=== PATIENT | female | born 1965 | race Caucasian/White ===

== ENCOUNTER 2020-10-29 11:04 | Outpatient (REF) | payer MEDICAID, SELFPAY | END 2020-10-29 11:05 | disposition home or self-care (01) | LOC: HO.BBR 11:04 | PROVIDERS: PCP Family Medicine; Visit Provider Internal Medicine Hematology & Oncology | DX: Z13.89 Encounter for screening for other disorder (principal) ==

== ENCOUNTER 2020-11-27 11:00 | Outpatient (REF) | payer MEDICAID, SELFPAY ==
[2020-11-27 12:58] LABS: Iron 146 mcg/dL (30-160); Percent Iron Saturation 60 % (15-50); Total Iron Binding Capacity 244 mcg/dL (228-428); Unsaturated Iron Binding 98 ug/dL
[2020-11-27 13:20] LABS: Ferritin 68 ng/mL (10-250)
== END 2020-11-27 11:01 | disposition home or self-care (01) ==
LOC: HO.BBR 11:00
PROVIDERS: Visit Provider Internal Medicine Hematology & Oncology
DX: E83.110 Hereditary hemochromatosis (principal)
CPT/HCPCS: 36415; 82728; 83540

== ENCOUNTER 2020-12-27 11:10 | Outpatient (REF) | payer MEDICAID, SELFPAY ==
[2020-12-27 12:48] LABS: Iron 148 mcg/dL (30-160); Percent Iron Saturation 61 % (15-50); Total Iron Binding Capacity 243 mcg/dL (228-428); Unsaturated Iron Binding 95 ug/dL
[2020-12-27 13:08] LABS: Ferritin 36 ng/mL (10-250)
== END 2020-12-27 11:11 | disposition home or self-care (01) ==
LOC: HO.BBR 11:10
PROVIDERS: Visit Provider Internal Medicine Hematology & Oncology
DX: E83.110 Hereditary hemochromatosis (principal)
CPT/HCPCS: 36415; 82728; 83540

== ENCOUNTER 2021-01-25 12:05 | Outpatient (REF) | payer MEDICAID, SELFPAY | END 2021-01-25 12:06 | disposition home or self-care (01) | LOC: HO.BBR 12:05 | PROVIDERS: PCP Family Medicine; Visit Provider Internal Medicine Hematology & Oncology | DX: Z13.89 Encounter for screening for other disorder (principal) ==

== ENCOUNTER 2021-03-22 11:06 | Outpatient (REF) | payer MEDICAID, SELFPAY ==
[2021-03-22 13:01] LABS: Ferritin 22 ng/mL (10-250)
== END 2021-03-22 11:07 | disposition home or self-care (01) ==
LOC: HO.BBR 11:06
PROVIDERS: Visit Provider Internal Medicine Hematology & Oncology
DX: E83.110 Hereditary hemochromatosis (principal)
CPT/HCPCS: 36415; 82728

== ENCOUNTER 2021-10-16 10:04 | Outpatient (REF) | payer MEDICAID, SELFPAY | END 2021-10-16 10:05 | disposition home or self-care (01) | LOC: HO.BBR 10:04 | PROVIDERS: Visit Provider Internal Medicine Hematology & Oncology | DX: Z13.89 Encounter for screening for other disorder (principal) ==

== ENCOUNTER 2022-05-16 11:08 | Outpatient (REF) | payer MEDICAID, SELFPAY | END 2022-05-16 11:09 | disposition home or self-care (01) | LOC: HO.BBR 11:08 | PROVIDERS: Visit Provider Internal Medicine Hematology & Oncology | DX: Z13.89 Encounter for screening for other disorder (principal) ==

== ENCOUNTER 2022-06-16 10:16 | Outpatient (REF) | payer MEDICAID, SELFPAY | END 2022-06-16 10:17 | disposition home or self-care (01) | LOC: HO.BBR 10:16 | PROVIDERS: Visit Provider Internal Medicine Hematology & Oncology | DX: Z13.89 Encounter for screening for other disorder (principal) ==

== ENCOUNTER 2022-07-16 10:02 | Outpatient (REF) | payer MEDICAID, SELFPAY | END 2022-07-16 10:03 | disposition home or self-care (01) | LOC: HO.BBR 10:02 | PROVIDERS: PCP Family Medicine; Visit Provider Internal Medicine Hematology & Oncology | DX: Z13.89 Encounter for screening for other disorder (principal) ==

== ENCOUNTER 2023-12-30 10:05 | Outpatient (REF) | payer OTHER, SELFPAY | END 2023-12-30 10:06 | disposition home or self-care (01) | LOC: HO.BBR 10:05 | PROVIDERS: PCP Family Medicine; Visit Provider Internal Medicine Hematology & Oncology | DX: Z13.89 Encounter for screening for other disorder (principal) ==

== ENCOUNTER 2024-04-05 11:09 | Outpatient (REF) | payer OTHER, SELFPAY | END 2024-04-05 11:10 | disposition home or self-care (01) | LOC: HO.BBR 11:09 | PROVIDERS: PCP Family Medicine; Visit Provider Internal Medicine Hematology | DX: Z13.89 Encounter for screening for other disorder (principal) ==

== ENCOUNTER 2024-07-05 11:10 | Outpatient (REF) | payer OTHER, SELFPAY | END 2024-07-05 11:11 | disposition home or self-care (01) | LOC: HO.BBR 11:10 | PROVIDERS: PCP Family Medicine; Visit Provider Internal Medicine Hematology | DX: Z13.89 Encounter for screening for other disorder (principal) ==

== ENCOUNTER 2024-10-03 10:54 | Outpatient (REF) | payer OTHER, SELFPAY | END 2024-10-03 10:55 | disposition home or self-care (01) | LOC: HO.BBR 10:54 | PROVIDERS: PCP Family Medicine; Visit Provider Internal Medicine Hematology | DX: Z13.89 Encounter for screening for other disorder (principal) ==

== ENCOUNTER 2025-01-02 11:03 | Outpatient (REF) | payer OTHER, SELFPAY ==
--- OUTSIDE RECORDS SUMMARY | 2025-01-02 12:37 | XMS_ITS | Patient Health Record ---
Author Organization [facility] Address [address] [place] [address] Support Name Relationship Address Phone CODY STUART Guarantor Unknown [phone] Reason For Referral No Information Medications Medication SIG (Take, Route, Fr equency, Duration) Notes Start Date End Date Status Doxycycline Hyclate 1 ORAL twice daily for -3 Danish-MJ 11/17 Active Problems Problem Type SNOMED Code ICD Code Onset Dates Problem Status W/U Status Risk Notes Problem Gynecological examination normal (464926250794995) Routine gynecological examination (V72.31) Active confirmed Major Problem Special screenin g for malignant neoplasms, colon (V76.51) Active confirmed Major Plan Of Treatment No Information
== END 2025-01-02 11:04 | disposition home or self-care (01) ==
LOC: HO.BBR 11:03
PROVIDERS: PCP Family Medicine; Visit Provider Internal Medicine Hematology
DX: Z13.89 Encounter for screening for other disorder (principal)

== ENCOUNTER 2025-05-04 10:26 | Outpatient (REF) | payer OTHER, SELFPAY ==
--- OUTSIDE RECORDS SUMMARY | 2025-05-04 12:54 | XMS_ITS | Patient Health Record ---
Author Organization [facility] Address [address] [place] [address] Support Name Relationship Address Phone CODY STUART Guarantor Unknown [phone] Reason For Referral No Information Medications Medication SIG (Take, Route, Fr equency, Duration) Notes Start Date End Date Status Doxycycline Hyclate 1 ORAL twice daily; Duration: -3 Danish-MJ 11/28/2013 Active Problems Problem Type SNOMED Code ICD Code Onset Dates Problem Status W/U Status Risk Notes Problem Gynecological examination normal (620980587728449) Routine gynecological examination (V72.31) Active confirmed Major Problem Screening for malignant neoplasm of colon (441148363) Special screening for malignant neoplasms, colon (V76.51) Active confirmed Major Plan Of Treatment No Information
--- OUTSIDE RECORDS SUMMARY | 2025-05-04 12:54 | XMS_ITS | Clinical Summary ---
Author Organization [facility] Address [address] [place] [address] Phone Care Team Providers Care House Nurse Name Role Phone Yoly Perry MD Primary Care Provider [phone] Encounters Date Type Department Care Team Description 02/21/2025 9:54 AM EDT - 02/21/2025 11:59 PM EDT Hospital Encounter [facility] CT Scan [address] [place] [address] Encounter for screening for lung cancer; Former smoker Discharge Disposition: Home or Self Care from Last 3 Months Social History Tobacco Use Types Packs/Day Years Used Date Smoking Tobacco: Former Cigarettes Q uit: 07/20/2020 Comments Unknown Sex and Gender Information Value Date Recorded Sex Assigned at Not on file Legal Sex Female 11:05 AM EDT Gender Identity Not on file Sexual Orientation Not on file Obstetrics History Plan of Treatment Health Maintenance Due Date Last Done Comments Breast Cancer Screening 1963 Colorectal Cancer Screening: Colonoscopy 1963 Cervical Cancer Screening: P ap Smear 1984 Pneumococcal Vaccine: 50+ Years (1 of 1 - PCV) 2013 Zoster Vaccines (1 of 2) 2013 DTaP,Tdap,and Td Vaccines (3 - Td or Tdap) 06/07/2022 06/07/2012, 07/20/2002 HIV Screening 02/12/2024 Hepatitis C Screening 02/12/2024 Social Influencers of Health Screening 02/12/2024 Depression Screening 07/20/2024 COVID-19 Vaccine (4 - 2024-2 6 season) 2025 06/30/2021, 11/12/2020, 10/22/2020 Influenza Vaccine (#1) 2025 RSV Immunization Adult Patients (1 - 1-dose 75+ series) 2038 HIB Vaccines Aged Out No longer eligi ble based on patient's age to complete this topic HPV Vaccines Aged Out No longer eligi ble based on patient's age to complete this topic Hepatitis A Vaccines Aged Out No long er eligible based on patient's age to complete this topic Hepatitis B Vaccines Aged Out No long er eligible based on patient's age to complete this topic IPV Vaccines Aged Out No longer eligi ble based on patient's age to complete this topic MMR Vaccines Aged Out No longer eligi ble based on patient's age to complete this topic Meningococcal ACWY Vaccine Aged Out N o longer eligible based on patient's age to complete this topic Meningococcal B Vaccine Aged Out No l onger eligible based on patient's age to complete this topic RSV Immunization Patients Under 20 months Aged Out No longer eligible b ased on patient's age to complete this topic Varicella Vaccines Aged Out No longer eligible based on patient's age to complete this topic Procedures Procedure Name Priority Date/Time Associated Diagnosis Comments CT LUNG SCREENING Routine 02/21/2025 10: 00 AM EDT Encounter for screening for lung cancer Former smoker from Last 3 Months Results * CT Lung Screening (02/21/2025 10:00 AM EDT) Anatomical Region Laterality Modality Chest Computed Tomogra phy 02/24/2025 5:54 PM EDT Impressions 02/24/2025 5:58 PM EDT No suspicious pulmonary nodules. ASSESSMENT: LungRADS Category2: Benign Appearance/Behavior - Continue annual screening with LDCT in 12 months Complete Lung RADS description including probabilities of malignancy and prevalence can be found at: [employer] Committee on Lung-RADS?. Lung- RADS Assessment Categories 2021. Available at [email or web address]. -------- FINAL REPORT -------- Dictated By: Ant Lopez Dictated Date: 02/24/2025 17:54 ET Assigned Physician: Ant Lopez Reviewed and Electronically Signed By: Ant Lopez Signed Date: 02/24/2025 17:58 ET Workstation ID: [id number] Transcribed By: Self Edit Transcribed Date: 02/24/2025 17:54 ET Narrative 02/24/2025 5:58 PM EDT History: 59 year-old 22.5 pack-year former smoker, asymptomatic, for lung cancer screening. 40 year since stopped Comparison: None Technique: Helical volumetric imaging of the thorax was performed, using low- dose technique, without IV contrast. DLP: 99 mGy/cm CT dose reduction technique utilized with one or more of the following: Automated exposure control and/or adjustment of the mA and/or kV according to patient size and/or use of iterative reconstruction technique. Findings: Lungs: Reveal millimeter nodule right upper lobe. 5 mm right lower lobe pleural-based nodule. Atelectasis medial right lower lobe. Calcified granuloma along the pleura on the left lower lobe. Pleura: There are no pleural effusions. No calcified or noncalcified pleural plaques. Mediastinum: Coronary artery calcifications. Upper Abdomen: This study was performed without contrast and with lower than standard dose. These factors reduce the sensitivity for detection of small lesions in the upper abdomen. Osseous Structures: No suspicious osseous abnormalities. Procedure Note Ant Lopez MD - 02/24/2025 History: 59 year-old 22.5 pack-year former smoker, asymptomatic, for lungcancer screening. 40 year since stopped Comparison: None Technique: Helical volumetric imaging of the thorax was performed, usinglow-dose technique, without IV contrast. DLP: 99 mGy/cm CT dose reduction technique utilized with one or more of the following:Automated exposure control and/or adjustment of the mA and/or kV accordingto patient size and/or use of iterative reconstruction technique. Findings: Lungs: Reveal millimeter nodule right upper lobe. 5 mm right lower lobepleural- based nodule. Atelectasis medial right lower lobe. Calcifiedgranuloma along the pleura on the left lower lobe. Pleura: There are no pleural effusions. No calcified or noncalcifiedpleural plaques. Mediastinum: Coronary artery calcifications. Upper Abdomen: This study was performed without contrast and with lowerthan standard dose. These factors reduce the sensitivity for detection ofsmall lesions in the upper abdomen. Osseous Structures: No suspicious osseous abnormalities. IMPRESSION: No suspicious pulmonary nodules. ASSESSMENT: LungRADS Category2: Benign Appearance/Behavior - Continue annual screeningwith LDCT in 12 months Complete Lung RADS description including probabilities of malignancy andprevalence can be found at: [employer] Committee onLung-RADS?. Lung-RADS Assessment Categories 2021. Available [email or web address]. -------- FINAL REPORT -------- Dictated By: Ant Lopez Dictated Date: 02/24/2025 17:54 ET Assigned Physician: Ant Lopez Reviewed and Electronically Signed By: Ant Lopez Signed Date: 02/24/2025 17:58 ET Workstation ID: [id number] Transcribed By: Self Edit Transcribed Date: 02/24/2025 17:54 ET Michael Villasenor MD IMG CT PROCEDURES Final Result from Last 3 Months Insurance [facility] Care Teams House Nurse Relationship Specialty Start Date End Date Yoly Perry MD [address] [place] [address] PCP - General 12/08/23
== END 2025-05-04 10:27 | disposition home or self-care (01) ==
LOC: HO.MAMMO 10:26
PROVIDERS: PCP Internal Medicine Hematology; Visit Provider Family Medicine
DX: Z12.31 Encounter for screening mammogram for malignant neoplasm of breast (principal)
CPT/HCPCS: 77063; 77067

== ENCOUNTER → 2025-05-04 10:30 | Outpatient (BNV) | payer OTHER, SELFPAY | PROVIDERS: PCP Internal Medicine Hematology; Visit Provider Radiology Body Imaging | DX: Z12.31 Encounter for screening mammogram for malignant neoplasm of breast (principal) | CPT/HCPCS: 77063; 77067 ==

== ENCOUNTER 2025-05-05 09:52 | Outpatient (REF) | payer OTHER, SELFPAY ==
--- OUTSIDE RECORDS SUMMARY | 2025-05-05 11:31 | XMS_ITS | Encounter Summary ---
Author Organization [facility] Address [address] [place] [address] Phone Care Team Providers Care Lpn Medical Assistant Name Role Phone Yoly Perry MD Primary Care Provider [phone] Encounter Details Date Type Department Care Team (Late st Contact Info) Description 08/09/2021 Procedure Pass [facility], Ct Scan - [address] [address] Social History Tobacco Use Types Packs/Day Years Used Date Smoking Tobacco: Former Cigarettes 0.3 8 0 07/20/2013 - 07/20/2021 Smokeless Tobacco: Never Alcohol Use Standard Drinks/Week Comments Yes 0 (1 standard drink = 0.6 oz pur e alcohol) Comments Unknown Sex and Gender Information Value Date Recorded Sex Assigned at Female 08/09/2021 10:28 AM EST Legal Sex Female 9:44 PM EDT Gender Identity Female 08/09/2021 10:28 AM EST Sexual Orientation Lesbian or Black 11/15/2024 4: 22 PM EDT 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 Wish to be (Past 1 Month) No 022 4:06 PM EST Rylee Lopez RN 2. Non-Specific Active Suici jagruti Thoughts (Past 1 Month) No 08/09/2021 4:06 PM EST Rylee Lopez RN 6. Suicidal Behavior (Lifetime) No 4:06 PM EST Rylee Lopez RN documented as of this encounter Plan of Treatment Upcoming Encounters Date Type Department Care Team (Late st Contact Info) Description 07/28/2025 11:45 AM EST Office Visit [facility] Plastic Surgery [address] [place] [address] Poncho Bautista MD [address] [place] [address], [address] [address] [email or web address] documented as of this encounter Visit Diagnoses Not on filedocumented in this encounter Additional Health Concerns Infection Onset Date Last Indicated Resolved Time CoV-Exposed 08/09/2021 08/12/2021 08/20/2021 1:23 AM EST documented as of this encounter Care Teams Lpn Medical Assistant Relationship Specialty Start Date End Date Yoly Perry MD [address] [place] [address] [email or web address] PCP - General Family Medicine 09/21/20 documented as of this encounter Additional Source Comments The information contained in this document represents components of the legal health record. It is not the complete legal health record.[facility]
--- OUTSIDE RECORDS SUMMARY | 2025-05-05 11:31 | XMS_ITS | Clinical Summary ---
Author Organization [facility] Address [address] [place] [address] Phone Care Team Providers Care Telephone Operators Supervisor Name Role Phone Yoly Perry MD Primary Care Provider [phone] Allergies Active Allergy Reactions Criticality Noted Date Comments Codeine 12/09/2021 possible reaction%2Fallergy Monosodium Glutamate 08/10/2021 No products including broth with MSG Sulfa (Sulfonamide Antibiotics) 06/26/2017 Medications doxycycline hyclate (VIBRAMYCIN) 100 MG capsule 11/14/2024 Active Active Problems Problem Noted Date Diagnosed Date Small bowel obstruction 08/09/2021 Assessment & Plan (08/10/2021 3:11 PM EST): Recent history of nausea, vomiting, poor oral intake. CT abdomen pelvis showed intestinal malrotation with small bowel obstruction due to multiple areas of narrowing, likely due to internal hernia/peritoneal bands. General surgery consulted whom stated no surgical intervention Conservative management. NG tube placed in the emergency department to low intermittent suction with improvement in abdominal distention. -We will perform an NG tube clamping trial and we will remove the NG tube if the residual is less than 100 mL. - If patient starts on a clear liquid diet she will continue that throughout the day - if she is doing well tomorrow morning we will advance her diet and likely discharge her home. -IV fluids for hydration. -Nutrition consult in case parental nutrition is needed Tobacco use Assessment & Plan (08/09/2021 2:29 PM EST): Abstinent from cigarettes since New Year's day. Commended for cessation. Nicotine support not needed. Hemochromatosis Assessment & Plan (08/10/2021 3:03 PM EST): Not likely to be contributing in any way to acute events. Family History Medical History Relation Comments No Known Problems Brother CV disease Father Cancer Father Diabetes mellitus Father Alzheimer's disease Mother Breast cancer Mother Breast Cancer Mother Relation Status Comments Brother Alive Father Mother Alive Social History Tobacco Use Types Packs/Day Years Used Date Smoking Tobacco: Former Cigarettes 0.3 8 0 01/17/2020 - 07/20/2021 Smokeless Tobacco: Never Tobacco Cessation:Counseling Given: Not Answered Comments:It s been on and off Alcohol Use Standard Drinks/Week Comments Yes 5 (1 standard drink = 0.6 oz pur e alcohol) Education Answer Date Recorded Are you interested in more education? Not on brodie e 11/14/2022 Are you concerned about learning? Not on file 11/14/2022 No 11/14/2022 No 11/14/2022 Digital Access Answer Date Recorded No 12/13/2022 No 12/13/2022 Reliable internet access at home? Not on file 12/13/2022 Device with a working camera? 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 on file Not on file Not on brodie e Last Filed Vital Signs Vital Sign Reading Time Taken Comments Blood Pressure 104/67 11/15/2024 4:26 PM EDT Pulse 102 11/15/2024 4:26 PM EDT Temperature 36.1 C (97 F) 11/15/2024 4:26 PM EDT Respiratory Rate 14 11/15/2024 4:26 PM EDT Oxygen Saturation 98% 11/15/2024 4:26 PM EDT Inhaled Oxygen Concentration - - Weight 60.8 kg (134 lb) 11/15/2024 4:26 PM EDT Height 160 cm (5' 3 ) 11/15/2024 4:26 PM EDT Body Mass Index 23.74 11/15/2024 4:26 PM EDT Plan of Treatment Upcoming Encounters Date Type Department Care Team (Late st Contact Info) Description 07/28/2025 11:45 AM EST Office Visit [facility] [address] [place] [address] Poncho Bautista MD [address] [place] [phone] [email or web address] Health Maintenance Due Date Last Done Comments LIPID PANEL 1963 DEPRESSION SCREENING 1975 HEPATITIS C SCREENING 1981 HIV ONE-TIME SCREENING (18-6 5 YEARS) 1981 PAP SMEAR 1984 MAMMOGRAM 2003 COLOGUARD 2008 COLONOSCOPY 2008 COLORECTAL CANCER SCREENING 2008 FIT TEST 2008 FOBT 2008 SIGMOIDOSCOPY 2008 VIRTUAL COLONOSCOPY 2008 PNEUMOCOCCAL VACCINES (50+ years) (1 of 1 - PCV) 2013 ZOSTER VACCINES (1 of 2) 2013 Adult Td,Tdap Booster 06/07/2022 06/07/2012 , 07/20/2002 INFLUENZA VACCINE (#1) 2025 COVID-19 VACCINE (4 - 2024-2 6 season) 2025 06/30/2021, 11/12/2020, 10/22/2020 SMOKING Hx and SMOKELESS TOBACCO SCREENING 11/15/2025 11/15/2024 RSV VACCINE (1 - 1-dose 75+ series) 2038 HEPATITIS A VACCINES Aged Out No long er eligible based on patient's age to complete this topic HIB VACCINES Aged Out No longer eligi ble based on patient's age to complete this topic MENINGOCOCCAL VACCINES (ACWY) Aged Out No longer eligible based on patient's age to complete this topic MENINGOCOCCAL VACCINES (B) Aged Out N o longer eligible based on patient's age to complete this topic Medical Devices Not on file Insurance [facility] DIRECT [facility] CONNE[employer] DIRECT [facility] [place] [address] [employer] [facility] [place] [address] [facility] Address: [facility] [address] [place] [address] [facility] [address] [place], [place] [address]ORCARE DIRECT [facility] DIRECT [facility] Advance Directives For more information, please contact: [phone] (9AM - 5PM [facility], Thursday-Thursday) * Full Code (Latest Code Status on File) Date Activated Date Inactivated Comments 08/09/2021 2:22 PM Question Answer Comments Code Status Confirmed With: Patient Care Teams Telephone Operators Supervisor Relationship Specialty Start Date End Date Yoly Perry MD [address] [place] [phone] [email or web address] [facility] PCP - General Family Medicine 09/21/20 Additional Source Comments The information contained in this document represents components of the legal health record. It is not the complete legal health record.[facility]
--- OUTSIDE RECORDS SUMMARY | 2025-05-05 11:31 | XMS_ITS | Encounter Summary ---
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, 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 Not on file Not on brodie e documented as of this encounter Plan of Treatment Upcoming Encounters Date Type Department Care Team (Late Contact Info) Description 07/28/2025 11:45 AM EST Office Visit [facility] Plastic Surgery [address] [place] [address] Poncho Bautista MD [address] [place] [phone] [email or web address] documented as of this encounter Visit Diagnoses Not on filedocumented in this encounter Care Teams Anesthesiologist Relationship Specialty Start Date End Date Yoly Perry MD [address] [place] [address] [email or web address] PCP - General Family Medicine 09/21/20 documented as of this encounter Additional Source Comments The information contained in this document represents components of the legal health record. It is not the complete legal health record.[facility]
--- OUTSIDE RECORDS SUMMARY | 2025-05-05 11:31 | XMS_ITS | Encounter Summary ---
Author Organization [facility] Address [address] [place] [address] Phone Care Team Providers Care Molding And Trim Installer Name Role Phone Yoly Perry MD Primary Care Provider [phone] Reason for Referral * MRI/CAT Scan - Closed Specialty Diagnoses / Procedures Referred By Eric farrell Referred To Contact Radiology Diagnoses Small bowel obstruction Hemochromatosis, unspecified hemochromatosis type Procedures CT Abdomen/Pelvis Enterography Sabino Weaver MD Phone: tel: fax: [email or web address] Referral ID Status Reason Start Date Expiration Date Visits Re quested Visits Authorized [id number] Closed 04/30/2022 04/30/2023 1 1 Encounter Details Date Type Department Care Team (Latest Contact Info) Description 04/30/2022 Transcribe Orders Virtual Department [address] [place] [address] Sabino Weaver MD [address] [place] [id number] [email or web address] Small bowel obstruction (Primary Dx); Hemochromatosis, unspecified hemochromatosis type Social History Tobacco Use Types Packs/Day Years [...] 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 Start 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, 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 Not on file Not on file Not on brodie e documented as of this encounter Plan of Treatment Upcoming Encounters Date Type Department Care Team (Late st Contact Info) Description 07/28/2025 11:45 AM EST Office Visit [facility] Plastic Surgery [address] [place] [phone] Poncho Bautista MD [address] [place] [phone] [email or web address] documented as of this encounter Results * CT ABDOMEN/PELVIS (ENTEROGRAPHY) WITH CONTRAST (05/08/2022 2:45 PM EDT) Anatomical Region Laterality Modality Abdomen, Pelvis Computed Tomogra phy 05/11/2022 1:08 PM EDT Impressions 05/11/2022 1:39 PM EDT 1.Resolution of previously seen small bowel obstruction. 2.Previously seen suggestion of bowel malrotation is no longer seen on today's exam. Narrative 05/11/2022 1:[address] ABDOMEN/PELVIS (ENTEROGRAPHY) WITH CONTRAST TECHNIQUE: Multidetector-row CT of the abdomen and pelvis was performed after administration of intravenous contrast using tailored dose modulation techniques. Images were reconstructed in the axial, coronal, and sagittal planes. COMPARISON: Abdomen/pelvis CT on August 09, 2021. Upper GI series on January 09, 2022. FINDINGS: Lower Chest: No consolidation or pleural effusions. Liver: Stable scattered subcentimeter hypodensities. Biliary: Normal. No biliary ductal dilatation. Spleen: Normal. No splenomegaly or focal lesions. Pancreas: Normal. No masses or ductal dilatation. Adrenal Glands: Normal. No nodules. Kidneys/Ureters: Normal. No solid masses, stones, or hydronephrosis. Bowel: Stomach is physiologically distended with ingested content. No bowel dilatation to suggest obstruction. In particular, previously seen dilatation of the small bowel loops has resolved. On today's examination, there are no bowel loops positioned lateral to the liver. Duodenum appears in appropriate position. Peritoneum/Retroperitoneum: No masses, pneumoperitoneum, or fluid. Lymph Nodes: Normal. No lymphadenopathy. Pelvic Organs/Bladder: Partially distended urinary bladder is grossly unremarkable. Similar uterine leiomyomas. Vessels: No abdominal aortic aneurysm. Atherosclerotic disease with calcifications. On today's exam, the superior mesenteric vein is not dilated and it is located approximately to the right side of the superior mesenteric artery. Bones/Soft Tissues: No destructive osseous lesions. Procedure Note Nisha Law MD - 05/11/2022 CT ABDOMEN/PELVIS (ENTEROGRAPHY) WITH CONTRAST TECHNIQUE: Multidetector-row CT of the abdomen and pelvis was performedafter administration of intravenous contrast using tailored dosemodulation techniques. Images were reconstructed in the axial, coronal,and sagittal planes. COMPARISON: Abdomen/pelvis CT on August 09, 2021. Upper GI series on 2021. FINDINGS: Lower Chest: No consolidation or pleural effusions. Liver: Stable scattered subcentimeter hypodensities. Biliary: Normal. No biliary ductal dilatation. Spleen: Normal. No splenomegaly or focal lesions. Pancreas: Normal. No masses or ductal dilatation. Adrenal Glands: Normal. No nodules. Kidneys/Ureters: Normal. No solid masses, stones, or hydronephrosis. Bowel: Stomach is physiologically distended with ingested content. Nobowel dilatation to suggest obstruction. In particular, previously seendilatation of the small bowel loops has resolved. On today's examination,there are no bowel loops positioned lateral to the liver. Duodenum appearsin appropriate position. Peritoneum/Retroperitoneum: No masses, pneumoperitoneum, or fluid. Lymph Nodes: Normal. No lymphadenopathy. Pelvic Organs/Bladder: Partially distended urinary bladder is grosslyunremarkable. Similar uterine leiomyomas. Vessels: No abdominal aortic aneurysm. Atherosclerotic disease withcalcifications. On today's exam, the superior mesenteric vein is notdilated and it is located approximately to the right side of the superiormesenteric artery. Bones/Soft Tissues: No destructive osseous lesions. IMPRESSION: 1.Resolution of previously seen small bowel obstruction. 2.Previously seen suggestion of bowel malrotation is no longer seen ontoday's exam. Sabino Weaver MD IMG CT ABD/PELVIS Final Resul t documented in this encounter Visit Diagnoses Diagnosis Small bowel obstruction- Primary Unspecified intestinal obstruction Hemochromatosis, unspecified hemochromatosis type Small bowel obstruction Unspecified intestinal obstruction Hemochromatosis, unspecified hemochromatosis type documented in this encounter Care Teams Molding And Trim Installer Relationship Specialty Start Date End Date Yoly Perry MD [address] [place] [phone] [email or web address] PCP - General Family Medicine 09/21/20 documented as of this encounter Additional Source Comments The information contained in this document represents components of the legal health record. It is not the complete legal health record.[facility]
--- OUTSIDE RECORDS SUMMARY | 2025-05-05 11:31 | XMS_ITS | Clinical Summary ---
Author Organization [facility] Address [address] [place] [address] Phone Care Team Providers Care Policy Advisor Name Role Phone Yoly Perry MD Primary Care Provider [phone] Encounters Date Type Department Care Team Description 02/21/2025 9:54 AM EDT - 02/21/2025 11:59 PM EDT Hospital Encounter [facility] CT Scan [address] [place] [address] Encounter for screening for lung [...] malignancy and prevalence can be found at: [employer] Committee on Lung-RADS?. Lung- RADS Assessment Categories 2021. Available at [email or web address]. -------- FINAL REPORT -------- Dictated By: Ant Lopez Dictated Date: 02/24/2025 17:54 ET Assigned Physician: Ant Lopez Reviewed and Electronically Signed By: Ant Lopez Signed Date: 02/24/2025 17:58 ET Workstation ID: [id number] Transcribed By: Self Edit Transcribed Date: 02/24/2025 [...] of malignancy andprevalence can be found at: [employer] Committee onLung-RADS?. Lung-RADS Assessment Categories 2021. Available [email or web address]. -------- FINAL REPORT -------- Dictated By: Ant Lopez Dictated Date: 02/24/2025 17:54 ET Assigned Physician: Ant Lopez Reviewed and Electronically Signed By: Ant Lopez Signed Date: 02/24/2025 17:58 ET Workstation ID: [id number] Transcribed By: Self Edit Transcribed Date: 02/24/2025 17:54 ET Michael Villasenor MD IMG CT PROCEDURES Final Result from Last 3 Months Insurance [facility] Care Teams Policy Advisor Relationship Specialty Start Date End Date Yoly Perry MD [address] [facility] [id number] PCP - General 12/08/23
--- OUTSIDE RECORDS SUMMARY | 2025-05-05 11:31 | XMS_ITS | Patient Health Record ---
Author Organization [facility] Address [address] [place] [address] Support Name Relationship Address Phone CODY STUART Guarantor Unknown [phone] Reason For Referral No Information Medications Medication SIG (Take, Route, Fr equency, Duration) Notes Start Date End Date Status Doxycycline Hyclate 1 ORAL twice daily; Duration: -3 Danish-MJ 11/28/2013 Active Problems Problem Type SNOMED Code ICD Code Onset Dates Problem Status W/U Status Risk Notes Problem Gynecological examination normal (307713507429530) Routine gynecological examination (V72.31) Active confirmed Major Problem Screening for malignant neoplasm of colon (188540379) Special screening for malignant neoplasms, colon (V76.51) Active confirmed Major Plan Of Treatment No Information
== END 2025-05-05 09:53 | disposition home or self-care (01) ==
LOC: HO.BBR 09:52
PROVIDERS: PCP Family Medicine; Visit Provider Internal Medicine Hematology
DX: Z13.89 Encounter for screening for other disorder (principal)